=== PATIENT | female | born 1995 | race Caucasian/White ===

== ENCOUNTER 2023-11-11 15:07 | Emergency (ER) | payer OTHER, SELFPAY ==
[2023-11-11 15:09] VITALS: BP 137/93; PULSE 91; RESP 18; O2SAT 98; BMI 42.5
--- NOTE | 2023-11-11 15:16 | [facility].EDGENADL ---
Discharge Plan Disposition Patient Disposition: Home, Self-Care Condition: Good Referrals Follow up/Referrals: Trenton Rome MD [Primary Care Provider] - See instructions Activity Restrictions/Add. Instructions Additional Instructions/Restrictions: Please call and make an appointment with general surgery for evaluation of your incisional hernia at the umbilicus. Clinical Impressions Clinical Impression: Incisional hernia Qualifiers: Obstruction and gangrene presence: without obstruction or gangrene Qualified Code(s): K43.2 - Incisional hernia without obstruction or gangrene Stand Alone Forms Stand Alone Forms: Work/School Release Instructions Patient Instructions: DI for Acute Abdominal Pain Discharge ED Provider: Kevin Howell General Adult HPI <CARYL Marquez - Last Filed: 11/11/23 18:17> General Chief complaint: Abdominal Pain Stated complaint: WC 11/10/23 1730 Abdominal Injury with vomiting Time Seen by Provider: 11/11/23 15:16 History of Present Illness HPI narrative: Patient 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 Estimated weight was about 50 pounds in an oblong box. Patient recently had a laparoscopic cholecystectomy that was complicated by an incisional hernia in the umbilical port. I do not have imaging or details about that but was cleared to return to full duty in the middle of last month. Patient reports that she is nauseated today with continued abdominal pain. She denies chest pain shortness of breath fever chills hemoptysis hematochezia melena vomiting or diarrhea. Related Data Allergies Allergy/AdvReac Type Severity Reaction Status Date / Time No Known Allergies Allergy Verified 11/11/23 15:29 PFSH <CARYL Marquez - Last Filed: 11/11/23 18:17> PFS Disclaimer: The information contained in this section may have been updated after the patient was seen, as this information can be updated by other users. Social History (Updated 11/11/23 @ 18:17 by CARYL Marquez) Smoking Status: Former smoker alcohol intake: never current occupational status: employed Travel in the last 8 weeks: None <CARYL Marquez - Last Filed: 11/11/23 18:17> ROS Obtained: Yes Systems reviewed as appropriate & no additional complaints except as documented Physical Exam <CARYL Marquez - Last Filed: 11/11/23 18:17> General General appearance: alert Head Head exam: atraumatic Eye Eye exam: Present normal appearance Respiratory Respiratory exam: Present normal lung sounds bilaterally Cardiovascular Cardiovascular exam: Present regular rate and normal rhythm Abdominal Exam Abdominal exam: Present soft (Morbidly obese), tenderness (Patient is focally and exquisitely tender to palpation in the periumbilical area. I am unable to appreciate down to the body wall due to the patient's body habitus however I do not feel any palpable masses or defects.) and normal bowel sounds; Absent guarding, rebound or rigidity Extremities Exam Extremities exam: Present normal inspection Back Exam Back exam: Present normal inspection Neurological Exam Neurological exam: Present alert Skin Skin exam: Present warm, dry and normal color Medical Decision Making <CARYL Marquez - Last Filed: 11/11/23 18:17> Medical Records Medical records reviewed: Yes I reviewed the patient's medical records. [place]evon Inquiry Pt receiving controlled substance: No Vital Signs: 11/11/23 15:09 11/11/23 15:30 11/11/23 18:27 Temperature 98.1 F Pulse Rate 97 H 100 H Pulse Rate [Left Radial] 91 H Respiratory Rate 18 18 Blood Pressure 132/77 132/63 Blood Pressure [Right Arm] 137/93 H Blood Pressure Mean [Right Arm] 107 Blood Pressure Source [Right Arm] Automatic Cuff Blood Pressure Position [Right Arm] Sitting 02 Sat by Pulse Oximetry 98 95 Oxygen Delivery Method Room Air Room Air Room Air Lab Data Lab results reviewed: Yes I reviewed the patient's lab results. Lab Results 11/11/23 16:04: WBC 8.6, RBC 4.92, Hgb 14.3, Hct 42.3, MCV 86.1, MCH 29.0, MCHC 33.7, RDW 13.9, Plt Count 234, MPV 8.6, Neut % (Auto) 58.7, Lymph % (Auto) 33.7, [place] % (Auto) 4.6, Eos % (Auto) 2.5, Baso % (Auto) 0.6, Neut # (Auto) 5.1, Lymph # (Auto) 2.9, [place] # (Auto) 0.4, Eos # (Auto) 0.2, Baso # (Auto) 0.1, PT 10.9, INR 1.01, Sodium 140, Potassium 3.8, Chloride 105, Carbon Dioxide 24, Anion Gap 14.8, BUN 12, Creatinine 0.80, Estimated Creat Clear 104, Estimated GFR 84, Est GFR ( Amer) 102, Glucose 116 H, Lactate 1.3, Calcium 9.5, Serum HCG, Qual Negative 11/11/23 16:04 11/11/23 16:04 Orders (Tests/Meds): ED MEDICATIONS Discontinued Medications Generic Name Dose Route Start Last Admin Trade Name Freq PRN Reason Stop Dose Admin Acetaminophen 1,000 mg 11/11/23 15:41 11/11/23 16:11 Acetaminophen 1,000mg/100ml Vial IV 11/11/23 15:42 1,000 mg ONCE ONE Administration Lactated Ringer's 1,000 mls @ 999 mls/hr 11/11/23 15:41 11/11/23 16:12 Lactated Ringer's 1000 Ml Bag IV 11/11/23 16:41 999 mls/hr .Q1H1M ONE Administration Iopamidol 75 ml 11/11/23 17:38 11/11/23 17:39 Iopamidol-370 (76%);100ml Bottle IV 11/11/23 17:39 75 ml ONCE ONE Administration Ketorolac Tromethamine 15 mg 11/11/23 15:41 11/11/23 16:12 Ketorolac 30mg/Ml Vial IV 11/11/23 15:42 15 mg ONCE ONE Administration Ondansetron HCl 8 mg 11/11/23 18:16 11/11/23 18:26 Ondansetron 4mg/2ml Vial IV 11/11/23 18:17 8 mg ONCE ONE Administration Sodium Chloride 10 ml 11/11/23 17:38 11/11/23 17:39 Sodium Chloride 0.9% 10ml Syr (Rad Only) IV 11/11/23 17:39 10 ml ONCE ONE Administration ORDERS Category Date Time Status CT abdomen pelvis w con Stat Cat Scan 11/11/23 17:12 Completed BMP [Basic Metabolic Panel] Stat Lab 11/11/23 16:04 Completed CBC w/Auto Diff [Complete Blood Count Auto Diff] Stat Lab 11/11/23 16:04 Completed HCG Qualitative, Serum Stat Lab 11/11/23 16:04 Completed INR [Prothrombin Time INR] Stat Lab 11/11/23 16:04 Completed Lactic Acid Stat Lab 11/11/23 16:04 Completed Medical Decision Narrative: In summary patient is a 28-year-old female who presents to the emergency department for evaluation of abdominal pain. Patient is hemodynamically stable upon arrival, afebrile. Physical exam is remarkable for a very pleasant 28-year-old female who is morbidly obese with periumbilical abdominal tenderness. I am unable to appreciate any abdominal wall defect or palpable masses bowel sounds are normal active however.. Differential diagnosis includes musculoskeletal strain versus umbilical hernia versus bowel incarceration etc. Initial workup will be conducted with CT scan of the abdomen pelvis with contrast hematologic labs. Initial interventions include Toradol Tylenol. Initial workup reviewed by me shows that her hematologic labs are nonactionable and my informal interpretation of her CT scan abdomen pelvis does show a incisional hernia at the umbilicus that does not contain bowel and the remainder of her abdominal exam is within normal limits.. Upon repeat evaluation acceptable resolution of her symptoms. Given this patient is referred back to general surgery for lifting recommendations giving her recent abdominal surgery along with the umbilical hernia. <Kevin Howell MD - Last Filed: 11/11/23 22:14> Vital Signs: 11/11/23 15:09 11/11/23 15:30 11/11/23 18:27 Temperature 98.1 F Pulse Rate 97 H 100 H Pulse Rate [Left Radial] 91 H Respiratory Rate 18 18 Blood Pressure 132/77 132/63 Blood Pressure [Right Arm] 137/93 H Blood Pressure Mean [Right Arm] 107 Blood Pressure Source [Right Arm] Automatic Cuff Blood Pressure Position [Right Arm] Sitting 02 Sat by Pulse Oximetry 98 95 Oxygen Delivery Method Room Air Room Air Room Air Lab Data Lab Results 11/11/23 16:04: WBC 8.6, RBC 4.92, Hgb 14.3, Hct 42.3, MCV 86.1, MCH 29.0, MCHC 33.7, RDW 13.9, Plt Count 234, MPV 8.6, Neut % (Auto) 58.7, Lymph % (Auto) 33.7, [place] % (Auto) 4.6, Eos % (Auto) 2.5, Baso % (Auto) 0.6, Neut # (Auto) 5.1, Lymph # (Auto) 2.9, [place] # (Auto) 0.4, Eos # (Auto) 0.2, Baso # (Auto) 0.1, PT 10.9, INR 1.01, Sodium 140, Potassium 3.8, Chloride 105, Carbon Dioxide 24, Anion Gap 14.8, BUN 12, Creatinine 0.80, Estimated Creat Clear 104, Estimated GFR 84, Est GFR ( Amer) 102, Glucose 116 H, Lactate 1.3, Calcium 9.5, Serum HCG, Qual Negative Orders (Tests/Meds): ED MEDICATIONS Discontinued Medications Generic Name Dose Route Start Last Admin Trade Name Freq PRN Reason Stop Dose Admin Acetaminophen 1,000 mg 11/11/23 15:41 11/11/23 16:11 Acetaminophen 1,000mg/100ml Vial IV 11/11/23 15:42 1,000 mg ONCE ONE Administration Lactated Ringer's 1,000 mls @ 999 mls/hr 11/11/23 15:41 11/11/23 16:12 Lactated Ringer's 1000 Ml Bag IV 11/11/23 16:41 999 mls/hr .Q1H1M ONE Administration Iopamidol 75 ml 11/11/23 17:38 11/11/23 17:39 Iopamidol-370 (76%);100ml Bottle IV 11/11/23 17:39 75 ml ONCE ONE Administration Ketorolac Tromethamine 15 mg 11/11/23 15:41 11/11/23 16:12 Ketorolac 30mg/Ml Vial IV 11/11/23 15:42 15 mg ONCE ONE Administration Ondansetron HCl 8 mg 11/11/23 18:16 11/11/23 18:26 Ondansetron 4mg/2ml Vial IV 11/11/23 18:17 8 mg ONCE ONE Administration Sodium Chloride 10 ml 11/11/23 17:38 11/11/23 17:39 Sodium Chloride 0.9% 10ml Syr (Rad Only) IV 11/11/23 17:39 10 ml ONCE ONE Administration ORDERS Category Date Time Status CT abdomen pelvis w con Stat Cat Scan 11/11/23 17:12 Completed BMP [Basic Metabolic Panel] Stat Lab 11/11/23 16:04 Completed CBC w/Auto Diff [Complete Blood Count Auto Diff] Stat Lab 11/11/23 16:04 Completed HCG Qualitative, Serum Stat Lab 11/11/23 16:04 Completed INR [Prothrombin Time INR] Stat Lab 11/11/23 16:04 Completed Lactic Acid Stat Lab 11/11/23 16:04 Completed Medical Decision Narrative: In summary patient is a 28-year-old female who presents to the emergency department for evaluation of abdominal pain. Patient is hemodynamically stable upon arrival, afebrile. Physical exam is remarkable for a very pleasant 28-year-old female who is morbidly obese with periumbilical abdominal tenderness. I am unable to appreciate any abdominal wall defect or palpable masses bowel sounds are normal active however.. Differential diagnosis includes musculoskeletal strain versus umbilical hernia versus bowel incarceration etc. Initial workup will be conducted with CT scan of the abdomen pelvis with contrast hematologic labs. Initial interventions include Toradol Tylenol. Initial workup reviewed by me shows that her hematologic labs are nonactionable and my informal interpretation of her CT scan abdomen pelvis does show a incisional hernia at the umbilicus that does not contain bowel and the remainder of her abdominal exam is within normal limits.. Upon repeat evaluation acceptable resolution of her symptoms. Given this patient is referred back to general surgery for lifting recommendations giving her recent abdominal surgery along with the umbilical hernia. I was consulted by the GERMAIN, and we discussed the complexity of the problems being addressed. I approved the treatment and management plan for this patient?s care in the Emergency Department, thus performing a substantive portion of the medical decision making. Kevin Howell MD Critical Care <CARYL Marquez - Last Filed: 11/11/23 18:17> Critical Care Time Critical Care Time: No
[2023-11-11 15:30] VITALS: BP 132/77; PULSE 97; O2SAT 95
[2023-11-11] MEDS: ACETAMINOPHEN 1,000MG/100ML VIAL 1000 MG IV (16:11)
[2023-11-11] MEDS: LACTATED RINGERS 1000ML 1,000 ML 999 ML IV (16:12)
[2023-11-11] MEDS: KETOROLAC 30MG/ML VIAL 15 MG IV (16:12)
[2023-11-11 16:15] LABS: Basophils # 0.1 K/mm3 (0-0.2); Basophils % 0.6 % (0.1-2.0); Eosinophils # 0.2 K/mm3 (0.0-0.4); Eosinophils % 2.5 % (0.1-12.0); Hematocrit 42.3 % (37.0-47.0); Hemoglobin 14.3 g/dL (12.2-16.2); Lymphocytes # 2.9 K/mm3 (0.7-4.5); Lymphocytes % 33.7 % (10-50); Mean Corpuscular HGB Conc 33.7 g/dL (31.8-35.4); Mean Corpuscular Volume 86.1 fl (81-99); Mean Platelet Volume 8.6 fl (7.4-10.4); Monocytes # 0.4 K/mm3 (0.1-1.0); Monocytes % 4.6 % (1.7-9.3); Neutrophils # 5.1 K/mm3 (1.8-7.8); Neutrophils % 58.7 % (37.0-80.0); Platelet Count 234 K/mm3 (142-424); Red Blood Count 4.92 M/mm3 (4.20-5.40); Red Cell Distribution Width 13.9 % (11.5-17.5); White Blood Count 8.6 K/mm3 (4.8-10.8)
[2023-11-11 16:23] LABS: Anion Gap 14.8 mEq/L (5-15); Blood Urea Nitrogen 12 mg/dl (7-17); Calcium 9.5 mg/dl (8.4-10.2); Carbon Dioxide 24 mmol/L (22.0-30.0); Chloride 105 mmol/L (98-107); Creatinine Clearance Estimated 104 mL/min (50-200); Estimated Glomerular Filt Rate 84 ml/min (>60); GFR (African American) 102 ML/MIN (>60); Glucose 116 mg/dl (74-100); Lactic Acid 1.3 mmol/L (0.7-2.1); Potassium 3.8 mmoL/L (3.5-5.1); Sodium 140 mmol/L (136-145)
[2023-11-11 16:24] LABS: INR 1.01 (0.9-1.1); Prothrombin Time 10.9 seconds (10.1-12.5)
[2023-11-11 16:30] LABS: HCG Qualitative, Serum Negative (Negative)
--- NOTE | 2023-11-11 17:12 | CT_ITS ---
PROCEDURE INFORMATION: Exam: CT Abdomen And Pelvis With Contrast Exam date and time: 11/11/2023 5:37 PM Age: 28 years old Clinical indication: Nausea; Abdominal pain; Generalized TECHNIQUE: Imaging protocol: Computed tomography of the abdomen and pelvis with contrast. Radiation optimization: All CT scans at this facility use at least one of these dose optimization techniques: automated exposure control; mA and/or kV adjustment per patient size (includes targeted exams where dose is matched to clinical indication); or iterative reconstruction. Contrast material: ISOVUE; Contrast volume: 75 ml; Contrast route: IV; COMPARISON: No relevant prior studies available. FINDINGS: Liver: Normal. No mass. Gallbladder and bile ducts: Gallbladder is surgically absent. No biliary ductal dilation. Pancreas: Normal. No ductal dilation. Spleen: Normal. No splenomegaly. Adrenal glands: Normal. No mass. Kidneys and ureters: 12 mm caliceal stone in the mid right kidney. Left kidney appears normal. No renal mass or hydronephrosis. Stomach and bowel: Unremarkable. No obstruction. No mucosal thickening. Appendix: The appendix is visualized and appears normal. Intraperitoneal space: Unremarkable. No free air. No significant fluid collection. Vasculature: Unremarkable. No abdominal aortic aneurysm. Lymph nodes: Unremarkable. No enlarged lymph nodes. Urinary bladder: Unremarkable as visualized. Reproductive: Unremarkable as visualized. Bones/joints: Unremarkable. No acute fracture. Soft tissues: Unremarkable. IMPRESSION: No acute abnormality. Incidental right nephrolithiasis noted.
[2023-11-11] MEDS: IOPAMIDOL-370 (76%);100ML BOTTLE 75 ML IV (17:39)
[2023-11-11] MEDS: SODIUM CHLORIDE 0.9% 10ML SYR (RAD ONLY) 10 ML IV (17:39)
[2023-11-11] MEDS: ONDANSETRON 4MG/2ML VIAL 8 MG IV (18:26)
[2023-11-11 18:27] VITALS: BP 132/63; PULSE 100; RESP 18; TEMP 36.7; O2SAT 97
== END 2023-11-11 18:29 | disposition home or self-care (01) ==
PROVIDERS: Physician Assistant; Emergency Provider Emergency Medicine; PCP Emergency Medicine
DX: R10.33 Periumbilical pain (principal); K43.2 Incisional hernia without obstruction or gangrene; E66.01 Morbid (severe) obesity due to excess calories; Z68.41 Body mass index [BMI] 40.0-44.9, adult; Z90.49 Acquired absence of other specified parts of digestive tract
CPT/HCPCS: 74177; 80048; 83605; 84703; 85025; 85610; 96361; 96374; 96375; 99284; J0131; J2405; Q9967